=== PATIENT | male | born 2000 | race African-American/Black ===

== ENCOUNTER 2019-11-19 22:45 | Emergency (ER) | payer OTHER ==
[~2019-11-19] VITALS: Ht 185.4 cm; Wt 63.5 kg
[2019-11-19] MEDS ORDERED: FINASTERIDE1 MG PO (23:16)
[2019-11-19 23:35] LABS: URINE BILIRUBIN NEGATIVE (Negative); URINE BLOOD NEGATIVE (Negative); URINE CLARITY CLEAR; URINE COLOR YELLOW; URINE GLUCOSE-RANDOM* NEGATIVE (Negative); URINE KETONES NEGATIVE (Negative); URINE LEUKOCYTES-REFLEX NEGATIVE (Negative); URINE NITRITE-REFLEX NEGATIVE (Negative); URINE PROTEIN (DIPSTICK) NEGATIVE (Negative); URINE UROBILINOGEN 0.2 E.U./dl (0.2-1.0)
[2019-11-20 00:54] VITALS: BP 138/81
== END 2019-11-20 00:55 | disposition home or self-care (01) ==
LOC: ER 22:45
PROVIDERS: Emergency Medicine
DX: N50.812 Left testicular pain (principal); Z79.899 Other long term (current) drug therapy